=== PATIENT | female | born 1970 | race Caucasian/White ===

== ENCOUNTER 2017-06-09 13:18 | Emergency (ER) | payer SELFPAY ==
[~2017-06-09] VITALS: Ht 160 cm; Wt 98.0 kg
[2017-06-09 13:21] VITALS: Ht 160 cm; Wt 98.0 kg
[2017-06-09] MEDS ORDERED: ACETAMINOPHEN 325 MG TAB PO ONE (14:30)
--- NOTE | 2017-06-09 14:55 | RADRPT ---
PROCEDURE: XR Right Ankle CLINICAL INDICATION: Pain, trauma TECHNIQUE: Standard 3 view radiographs were submitted. COMPARISON: None FINDINGS: Osseous structures: Well mineralized and intact with no fracture or destructive process identified. Joint spaces: Well maintained with no significant erosions or spurring evident. Soft tissues: There is extensive soft tissue swelling seen about the lateral malleolus compatible wi th a sprain. IMPRESSION: Right ankle sprain. Physician Pari Date Time Electronically viewed and signed by Remy Buenrostro Physician on 06/09/2017 14:55 RH/
[2017-06-09] MEDS ORDERED: ONDANSETRON (ODT) 4 MG TAB ODT STA (15:37)
[2017-06-09] MEDS ORDERED: HYDR-906 PO (15:46)
--- NOTE | 2017-06-09 15:50 | ERD ---
ER Documentation Chief Complaint Date/Time DATE: 06/09/17 TIME: 15:49 Chief Complaint right ankle pain/swelling s/p fall HPI This 46-year-old female presents with right ankle pain and swelling after tripping today. She has restricted range of motion weakness or bleeding or lacerations. ROS All systems reviewed and are negative except as per history of present illness. Medications Home Meds Active Scripts Hydrocodone/Acetaminophen (Staley 5-325 Tablet) 1 Each Tablet, 1 TAB PO Q6H Y for PAIN, #7 TAB Prov:NOHELIA WONG MD 06/09/17 Allergies Allergies: Coded Allergies: cefazolin (Unverified Allergy, Intermediate, 06/09/17) PMhx/Soc Medical and Surgical Hx: pt denies Medical Hx, pt denies Surgical Hx Hx Alcohol Use: No Hx Substance Use: No Smoking Status: Never smoker Physical Exam Vitals Vital Signs Date Time Temp Pulse Resp B/P Pulse Ox O2 Delivery O2 Flow Rate FiO2 06/09/17 13:21 98.2 128 18 145/102 95 Physical Exam Const: [] Alert, [id number]. Head: Atraumatic Eyes: Normal Conjunctiva ENT: Normal External Ears, Nose and Mouth. Neck: Full range of motion..~ No meningismus. Resp: Clear to auscultation bilaterally Cardio: Regular rate and rhythm, no murmurs Abd: Soft, non tender, non distended. Normal bowel sounds Skin: No petechiae or rashes Back: No midline or flank tenderness Ext: No cyanosis, or edema. Tenderness and swelling on the right lateral malleolar area. Is no restricted range of motion or deformities. No evidence of ischemia or deficits per Neur: Awake and alert Psych: Normal Mood and Affect Results 24 hrs Current Medications Medications (Trade) Dose Ordered Sig/Devonte Route PRN Reason Start Time Stop Time Status Last Admin Dose Admin Acetaminophen (Tylenol Tab) 650 mg ONCE ONCE PO 06/09/17 14:30 06/09/17 14:31 DC 06/09/17 14:11 Ondansetron HCl (Zofran Odt) 8 mg ONCE STAT ODT 06/09/17 15:37 06/09/17 15:39 DC 06/09/17 15:41 Procedures/MDM X-ray Ankle 3V Interpreted by me: Bones: [No fracture] Joints: No dislocation. Patient has normal right ankle Patient was placed in a right ankle stirrup splint administered crutches with crutch training Patient presents with signs and symptoms of right ankle sprain without evidence of fracture, dislocation, bacterial infection, deficits. Patient had one episode of vomiting during the ED course was given Zofran had no further episodes of vomiting. Patient may have had vomiting to distress or pain the patient was given Tylenol for pain prior and will be discharged home a short course of Staley and orthopedic and primary care follow-up. The patient was stable with no new complaints during the ER course. Clinically, there is no current evidence to suggest meningitis, sepsis, acute abdomen, pneumonia, acute coronary syndrome, pulmonary embolism, or any other emergent condition appearing to require further evaluation or hospitalization. The patient should certainly return for any new or worsening symptoms per the aftercare instructions. They should otherwise follow-up with her primary care doctor for reevaluation this week. Disclaimer: Inadvertent spelling and grammatical errors are likely due to EHR/ dictation software use and do not reflect on the overall quality of patient care. Also, please note that the electronic time recorded on this note does not necessarily reflect the actual time of the patient encounter. Departure Diagnosis: Primary Impression: Ankle injury Encounter type: initial encounter Laterality: right Qualified Code: S99.911A - Ankle injury, right, initial encounter Condition: Stable Patient Instructions: Treating Ankle Sprains, Sprain, Ankle, With X-Ray Referrals: ALLIE SCOTT MD Additional Instructions: X-rays read as normal. Appears to be a sprain. Ice and elevate at home. See primary doctor and orthopedist for pain next week. NOHELIA WONG MD Jun 09, 2017 15:50
== END 2017-06-09 16:02 | disposition home or self-care (01) ==
LOC: FTE 13:18
DX: S99.911A Unspecified injury of right ankle, initial encounter (principal); W01.0XXA Fall on same level from slipping, tripping and stumbling without subsequent striking against object, initial encounter; Y92.9 Unspecified place or not applicable